=== PATIENT | male | born 1965 | race Caucasian/White ===

== ENCOUNTER → 2023-05-26 12:49 | Outpatient (REF) | payer OTHER, SELFPAY | LOC: RAD 12:49 | PROVIDERS: ATTENDING PHYSICIAN Physician Assistant; FAMILY PHYSICIAN Physician Assistant Medical | DX: M81.0 Age-related osteoporosis without current pathological fracture (principal) | CPT/HCPCS: 77080 ==

== ENCOUNTER 2023-12-17 12:05 | Emergency (ER) | payer OTHER, SELFPAY ==
[2023-12-17] VITALS (10 sets, daily range): BP systolic 85–110; BP diastolic 54–88; BMI 26.6
--- NOTE | 2023-12-17 12:43 | ED.GENMED ---
History of Present Illness
<RASHEED Gonzalez - Last Filed: 12/17/23 14:54>
General
Chief Complaint: Heart Rate Problem
Source: patient
Exam Limitations: none
Time Seen by Provider: 12/17/23 12:35
Nursing documentation reviewed up to this point in time: agreed with
History of Present Illness
History of Present Illness:
Patient is a 4-year-old male with past medical history of DVT on Eliquis, hypertension on lisinopril reflux on Nexium presents to the ER for evaluation. Patient reports he received the flu vaccine and COVID-vaccine December 05 and then on
December 07 in the middle the night he woke up very sweaty and felt feverish. Since then he has felt very fatigued. He went to his family doctor's office today and was found to be tachycardic with a heart rate of 160. His blood pressure was also
low. Patient presents to the ER awake alert he denies any associated shortness of breath chest pain. He is tachycardic and hypertensive. He feels tired but denies any dizziness. He was not aware his blood pressure was low and he has been taking
his lisinopril. Patient does report he has been very thirsty for water some symptoms started.
Past History
<RASHEED Gonzalez - Last Filed: 12/17/23 14:54>
Past History
ED Past Medical History: Psychiatric, Other (renal calculi), Other (severe epistaxis in past) and Other (DVT, has IVC filter)
ED Past Surgical History: None
Social History
Tobacco: Non-smoker
Alcohol: None
Drug: None
Personal:
Living: with family
Employment: Employed
Family History
Family History: Diabetes
Review of Systems
<RASHEED Gonzalez - Last Filed: 12/17/23 14:54>
Review of Systems
Allergies reviewed?: Yes
All Other Systems: ROS reviewed and negative except as documented in HPI and ROS
Constitutional: Reports other (+ feverish /sweaty on 12/07 )
EENT: Reports no symptoms
Respiratory: Reports no symptoms; Denies trouble breathing
ABD/GI: Reports no symptoms; Denies abdominal pain, nausea, vomiting or black stools
: Reports no symptoms
Musculoskeletal: Reports no symptoms
Skin: Reports no symptoms
Neurological: Reports no symptoms
Psychiatric: Reports no symptoms
Phy Exam
<RASHEED Gonzalez - Last Filed: 12/17/23 14:54>
General Physical Exam
General Presentation: no apparent distress
General age: appears stated age
General Skin: warm and dry
General Habitus: normal
General Mental: alert
General Hydration: appears well hydrated
Cardiovascular Exam
Cardiovascular Exam: no murmur, normal peripheral pulses and tachycardia
Pulmonary Exam
Pulmonary Exam: lungs clear and no respiratory distress
Neurological Exam
Neurological Exam: alert and oriented x3
Musculoskeletal Exam
Musculoskeletal Exam: full ROM
Skin Exam
Skin Exam: normal color and warm/dry
Psychiatric Exam
Psychiatric Exam: normal mood/affect
Course
<RASHEED Gonzalez - Last Filed: 12/17/23 14:54>
Orders/Labs/Results
Orders:
Orders
12/17/23 12:15
ECG [Electrocardiogram (*1)] Urgent
Reason for Study: Tachycardia
12/17/23 12:16
EKG- Treatment ONCE
12/17/23 12:35
CBC/With Diff [Complete Blood Count/With Diff] Urgent
CMP [Comprehensive Metabolic Panel] Urgent
TSH Reflex To Free T4 Urgent
Comment: ADD ON
Troponin I Urgent
12/17/23 13:17
Potassium Chloride 10% Elixir [KCl Elixir] 40 meq PO NOW STA
12/17/23 13:28
Add On- LAB Urgent
Tests Added?: TSH reflex Free T4
Abnormal Lab Results
12/17/23 12/17/23
12:35 12:50
WBC 11.6 H 10^3/uL
(4.8-10.8)
RBC 4.55 L 10^6/uL
(4.70-6.10)
MCV 94.7 H fL
(80.0-94.0)
MCH 34.7 H pg
(27.0-31.0)
Abs Immat Gran (auto) 0.1 H 10^3/uL
(0-0.05)
Absolute Neuts (auto) 8.2 H 10^3/uL
(1.4-6.5)
Absolute Monos (auto) 1.9 H 10^3/uL
(0.1-0.6)
Immature Gran % 0.8 H %
(0-0.5)
Lymphocytes % 10.9 L %
(20.5-51.1)
Monocytes % 16.2 H %
(1.7-9.3)
Potassium 3.1 L mmol/L
(3.5-5.1)
Creatinine 1.6 H mg/dL
(0.7-1.3)
Glucose 115 H mg/dl
(70-99)
Total Protein 6.1 L g/dl
(6.3-8.2)
POC Glucose 124 H mg/dl
(70-99)
12/17/23 12:35
12/17/23 12:35
Vital Signs
Initial and Last Documented VS:
Initial Vital Signs
Temp Pulse Resp BP Pulse Ox
98.4 F 124 18 103/87 98
12/17/23 12:09 12/17/23 12:09 12/17/23 12:09 12/17/23 12:09 12/17/23 12:09
Last Documented Vital Signs
Temp Pulse Resp BP Pulse Ox
98.4 F 100 15 110/88 98
12/17/23 12:09 12/17/23 14:00 12/17/23 14:00 12/17/23 14:00 12/17/23 14:00
Services Program Manager consulted with Physician
Services Program Manager consulted with physician?: Yes
Name of Physician Consulted: Tomer
<Tank Jeff, DO - Last Filed: 12/17/23 13:36>
Orders/Labs/Results
Orders:
Orders
12/17/23 12:15
ECG [Electrocardiogram (*1)] Urgent
Reason for Study: Tachycardia
12/17/23 12:16
EKG- Treatment ONCE
12/17/23 12:35
CBC/With Diff [Complete Blood Count/With Diff] Urgent
CMP [Comprehensive Metabolic Panel] Urgent
TSH Reflex To Free T4 Urgent
Comment: ADD ON
Troponin I Urgent
12/17/23 13:17
Potassium Chloride 10% Elixir [KCl Elixir] 40 meq PO NOW STA
12/17/23 13:28
Add On- LAB Urgent
Tests Added?: TSH reflex Free T4
Abnormal Lab Results
12/17/23 12/17/23
12:35 12:50
WBC 11.6 H 10^3/uL
(4.8-10.8)
RBC 4.55 L 10^6/uL
(4.70-6.10)
MCV 94.7 H fL
(80.0-94.0)
MCH 34.7 H pg
(27.0-31.0)
Abs Immat Gran (auto) 0.1 H 10^3/uL
(0-0.05)
Absolute Neuts (auto) 8.2 H 10^3/uL
(1.4-6.5)
Absolute Monos (auto) 1.9 H 10^3/uL
(0.1-0.6)
Immature Gran % 0.8 H %
(0-0.5)
Lymphocytes % 10.9 L %
(20.5-51.1)
Monocytes % 16.2 H %
(1.7-9.3)
Potassium 3.1 L mmol/L
(3.5-5.1)
Creatinine 1.6 H mg/dL
(0.7-1.3)
Glucose 115 H mg/dl
(70-99)
Total Protein 6.1 L g/dl
(6.3-8.2)
POC Glucose 124 H mg/dl
(70-99)
12/17/23 12:35
12/17/23 12:35
Vital Signs
Initial and Last Documented VS:
Initial Vital Signs
Temp Pulse Resp BP Pulse Ox
98.4 F 124 18 103/87 98
12/17/23 12:09 12/17/23 12:09 12/17/23 12:09 12/17/23 12:09 12/17/23 12:09
Last Documented Vital Signs
Temp Pulse Resp BP Pulse Ox
98.4 F 100 15 110/88 98
12/17/23 12:09 12/17/23 14:00 12/17/23 14:00 12/17/23 14:00 12/17/23 14:00
<RASHEED Gonzalez - Last Filed: 12/17/23 14:54>
MDM/Problems Addressed
MDM/Problems Addressed:
Patient is document is a 4-year-old male who presented to his primary care office with an elevated heart rate in the 160s. After receiving COVID and flu vaccine on the he started to not feel well feeling fatigued. He did have intermittent
fevers over the past 2 days after receiving vaccinations. Patient has been fatigued and found to have elevated heart rate at PCP and sent here. He did present with an elevated heart rate here and low blood pressure. He however denies any recent
fevers and is afebrile here with a white count of 11.6. Patient was given fluids which did improve pressure. He arrived nontoxic and remained nontoxic-appearing.
Patient's potassium was slightly with 3.1 he was given a dose of KCl here. Normal sodium. His creatinine was elevated 1.6 and his troponin was negative no complaints of chest pain thyroid pending.
Pt was evaluated by ED attending.
Patient is well-appearing feeling better patient evaluated by ED physician with plans for outpatient cardiology follow-up with a Holter monitor.
<RASHEED Gonzalez - Last Filed: 12/17/23 14:54>
*Pulse Oximetry
Patient hypoxic: no
*EKG
Interpreted by ED Provider?: Yes
Interpretation: abnormal
Heart Rate: 117
*Critical Care Note
Total Time (30-74mins, 75-104mins- exclusive of procedures): Not Applicable
ED Attending Note
<RASHEED Gonzalez - Last Filed: 12/17/23 14:54>
-
Portions of this chart may have been created with voice recognition software.� Occasional wrong word or��sound alike� substitutions may have occurred due to the inherent limitations of voice recognition software.
<Tank Jeff DO - Last Filed: 12/17/23 13:36>
ED Attending Note
Patient seen and examined by attending physician: Yes
I performed the substantive portion of visit, reviewed & personally made and approve the management plan that is documented in note by myself or KM.: Yes
ED Attending Note:
I have seen and evaluated the patient with a [id number] encounter. I have spoken to the advance practicer provider and involved in the medical history, the physical exam, medical decision making.
Evaluation and management service: agree unless noted differently below.
Results interpretation: agree unless noted differently below.
Focused HPI: 58-year-old male presenting for evaluation of tachycardia and feeling unwell. He initially thought this could be an adverse reaction to recent vaccines. On arrival, patient found to be tachycardic and hypotensive
Physical exam: On my evaluation, patient has already received IV fluids. He is now in a normal sinus rhythm and denies any complaint. Heart regular rhythm. Lungs clear. No leg edema
Medical Decision Making: This could potentially be related to dehydration versus adverse side effect of the vaccines. Initial EKG concerning for sinus tachycardia. Denies chest pain or shortness of breath. All symptoms resolved. Will replete
potassium thyroid functions. We discussed outpatient follow-up with PCP to discuss Holter monitor to ensure no underlying A-fib or a flutter
Discharge Plan
Departure
Patient Disposition: Home (Routine Discharge)
Date of Disposition: 12/17/23
Time of Disposition: 14:53
Patient with high blood pressure during this ER visit?: No
Condition: Fair
Covid-19: Not Applicable
Discharge Problem:
Tachycardia
Instructions: Sinus Tachycardia (DC)
Prescriptions:
No Action
lamotrigine [Lamictal] 200 MG tablet
200 mg PO DAILY
Patient Comments:
Patient states 'my doctors office has them'
Eliquis DVT-PE Treat 30D Start 5 MG tablets,dose pack
5 - 10 mg PO DIRECTED Qty: 1 0RF
esomeprazole magnesium [Nexium] 40 mg Capsule,Delayed Release(Dr/Ec)
40 mg PO DAILY
lisinopril 40 mg Tablet
40 mg PO DAILY
duloxetine [Cymbalta] 30 mg Capsule,Delayed Release(Dr/Ec)
30 mg PO DAILY
omeprazole-sodium bicarbonate [Zegerid] 40-1.1 mg-gram Capsule
1 cap PO DAILY
quetiapine [Seroquel] 50 mg Tablet
50 mg PO DAILY PRN (Reason: as directed )
sumatriptan succinate 25 mg Tablet
25 mg PO
zoledronic cnrm-kgerqwkn-oytvo [Reclast] 5 mg/100 mL Piggyback
IV
penicillin V potassium 250 mg tablet
250 mg PO QID Qty: 40 0RF
oxycodone-acetaminophen [Percocet] 5-325 mg tablet
1 tab PO Q4HPRN PRN (Reason: pain) Qty: 8 0RF
Referrals:
Scheiring,Halle, DO [Active] -
UNKNOWN - PT DOES,NOT KNOW [Family Provider] -
Activity Restrictions/Additional Instructions:
As discussed stay well-hydrated. Please call cardiology tomorrow for an appointment as soon as possible. Return if any worsening of symptoms if palpitations shortness of breath ,chest pain,increased fatigue or any further concerns.
Your potassium was mildly low and you were given a dose here in the ER please have this rechecked by your family doctor. Your thyroid level is normal.
In addition your creatinine(kidney function) was mildly elevated please have this also rechecked by your family doctor in the next several days
Avoid caffeine , chocolate alcohol.
Interventions
Interventions:
*Risk Screen - Suicide Last Done: 12/17/23 12:19
*General Assessment Last Done: 12/17/23 12:19
*Neglect/Abuse Screening Last Done: 12/17/23 12:19
ED- Fall Risk Assessment Last Done: 12/17/23 12:35
*ED COVID-19 Vaccine History Last Done: 12/17/23 12:19
ED- Cardiac Assessment Last Done: 12/17/23 12:38
ED- Pulmonary Assessment Last Done: 12/17/23 12:38
Discharge Date and Time
Print Language: CAMEROONIAN
[2023-12-17 12:47] LABS: % Basophils 0.5 % (0-2); % Immature Granulocytes 0.8 % (0-0.5); % Lymphocytes 10.9 % (20.5-51.1); % Monocytes 16.2 % (1.7-9.3); % Neutrophils 70.6 % (42.2-75.2); Absolute Basophils 0.1 10^3/uL (0-0.2); Absolute Eosinophils 0.1 10^3/uL (0-0.7); Absolute Immature Granulocytes 0.1 10^3/uL (0-0.05); Absolute Lymphocytes 1.3 10^3/uL (1.2-3.4); Absolute Monocytes 1.9 10^3/uL (0.1-0.6); Absolute Neutrophils 8.2 10^3/uL (1.4-6.5); Hematocrit 43.1 % (39.0-52.0); Hemoglobin 15.8 g/dL (13.0-18.0); Mean Corp Hgb Conc. 36.7 g/dL (33.0-37.0); Mean Corpuscular Hgb 34.7 pg (27.0-31.0); Mean Corpuscular Volume 94.7 fL (80.0-94.0); Mean Platelet Volume 9.2 fL (7.4-10.4); Nucleated Red Blood Cells % 0 % (-); Platelet Count 231 10^3/uL (130-400); Red Blood Cell Count 4.55 10^6/uL (4.70-6.10); Red Cell Dist. Width 12.9 % (11.5-14.5); White Blood Cell Count 11.6 10^3/uL (4.8-10.8)
[2023-12-17 12:51] LABS: Glucose - Point of Care 124 mg/dl (70-99)
[2023-12-17 13:06] LABS: ALT (SGPT) 17 U/L (0-50); AST (SGOT) 29 U/L (17-59); Albumin 3.6 g/dl (3.5-5.0); Alkaline Phosphatase 117 U/L (38-126); Blood Urea Nitrogen 15 mg/dl (9-20); Calcium 8.9 mg/dl (8.4-10.2); Carbon Dioxide 25 mmol/L (22-30); Chloride 99 mmol/L (98-107); Estimated Creatinine Clearance 51 ml/min; Glucose 115 mg/dl (70-99); Potassium 3.1 mmol/L (3.5-5.1); Sodium 137 mmol/L (135-145); Total Bilirubin 0.7 mg/dl (0.2-1.3); Total Protein 6.1 g/dl (6.3-8.2); eGFR 49.02
[2023-12-17 13:16] LABS: Troponin I < 0.012 ng/ml
[2023-12-17] MEDS: KCL ELIXIR 40 MEQ PO (13:59)
[2023-12-17 14:49] LABS: TSH Reflex To Free T4 2.01 uIU/ml (0.47-4.68)
== END 2023-12-17 15:56 | disposition home or self-care (01) ==
LOC: EMR 12:05
PROVIDERS: Emergency Medicine; EMERGENCY PHYSICIAN Student in an Organized Health Care Education/Training Program
DX: R00.0 Tachycardia, unspecified (principal); R50.9 Fever, unspecified; R53.83 Other fatigue; I10 Essential (primary) hypertension; Z79.01 Long term (current) use of anticoagulants; Z79.899 Other long term (current) drug therapy; Z86.718 Personal history of other venous thrombosis and embolism; Z87.442 Personal history of urinary calculi
CPT/HCPCS: 99283; 80053; 82962; 84443; 84484; 85025; 93005

== ENCOUNTER → 2024-01-09 12:47 | Outpatient (REF) | payer OTHER, SELFPAY | LOC: HWRCS 12:47 | PROVIDERS: ATTENDING PHYSICIAN Internal Medicine Cardiovascular Disease; FAMILY PHYSICIAN Physician Assistant Medical | DX: I48.0 Paroxysmal atrial fibrillation (principal) | CPT/HCPCS: 93306 ==

== ENCOUNTER 2024-05-05 15:17 | Emergency (ER) | payer OTHER, SELFPAY ==
[2024-05-05] VITALS (9 sets, daily range): BP systolic 108–161; BP diastolic 76–121
[2024-05-05 16:07] LABS: % Basophils 0.3 % (0-2); % Eosinophils 0.3 % (0-6); % Immature Granulocytes 0.9 % (0-0.5); % Lymphocytes 10.3 % (20.5-51.1); % Neutrophils 75.2 % (42.2-75.2); Absolute Immature Granulocytes 0.1 10^3/uL (0-0.05); Absolute Lymphocytes 1.1 10^3/uL (1.2-3.4); Absolute Monocytes 1.3 10^3/uL (0.1-0.6); Absolute Neutrophils 7.8 10^3/uL (1.4-6.5); Hematocrit 42.1 % (39.0-52.0); Hemoglobin 15.1 g/dL (13.0-18.0); Mean Corp Hgb Conc. 35.9 g/dL (33.0-37.0); Mean Corpuscular Hgb 34.5 pg (27.0-31.0); Mean Corpuscular Volume 96.1 fL (80.0-94.0); Mean Platelet Volume 9.3 fL (7.4-10.4); Nucleated Red Blood Cells % 0 % (-); Platelet Count 267 10^3/uL (130-400); Red Blood Cell Count 4.38 10^6/uL (4.70-6.10); Red Cell Dist. Width 12.9 % (11.5-14.5); White Blood Cell Count 10.3 10^3/uL (4.8-10.8)
[2024-05-05 16:18] LABS: ALT (SGPT) 18 U/L (0-50); AST (SGOT) 24 U/L (17-59); Albumin 3.9 g/dl (3.5-5.0); Alkaline Phosphatase 142 U/L (38-126); Blood Urea Nitrogen 15 mg/dl (9-20); Calcium 8.4 mg/dl (8.4-10.2); Carbon Dioxide 22 mmol/L (22-30); Chloride 96 mmol/L (98-107); Glucose 116 mg/dl (70-99); Potassium 3.7 mmol/L (3.5-5.1); Sodium 128 mmol/L (135-145); Total Bilirubin 1.6 mg/dl (0.2-1.3); Total Protein 6.7 g/dl (6.3-8.2); eGFR > 60.00
[2024-05-05 16:48] LABS: TSH Reflex To Free T4 2.05 uIU/ml (0.47-4.68)
--- NOTE | 2024-05-05 18:21 | ED.GENMED ---
History of Present Illness
General
Chief Complaint: Heart Rate Problem
Source: patient
Exam Limitations: none
Time Seen by Provider: 05/05/24 18:12
Nursing documentation reviewed up to this point in time: agreed with
History of Present Illness
History of Present Illness:
59 yr old male presents to the ED for evaluation of elevated heart rate.
PT was sent by pcp.
Patient went for routine physical and was found to have an elevated heart rate. He reports this has occurred in the past in fact he was here in December 2023 for tachycardia. He did see Dr. Asael Guan and had a full evaluation; he reports
he was not recommended to have a Holter monitor.
Patient reports on Friday he started to feel tired had a mild postnasal drip however denies any other recent illness. His family doctor tested him for COVID and flu both of which were negative today. He does admit however that he did have an
energy drink this morning and did take Robitussin last night. He normally drinks a Pepsi a day and drinks energy drinks occasionally.
He was not aware that his heart rate was high he had no palpitations chest pain or shortness of breath.
He does have a history of DVT and is on Eliquis.
Pt is on lisinopril however no other rate control drug.
Patient has a history of alcohol abuse quit in 2021
Past History
Past History
ED Past Medical History: Psychiatric, Other (renal calculi), Other (severe epistaxis in past) and Other (DVT, has IVC filter)
ED Past Surgical History: None
Social History
Tobacco: Non-smoker
Alcohol: None
Drug: None
Personal:
Living: with family
Employment: Employed
Family History
Family History: Diabetes
Review of Systems
Review of Systems
Allergies reviewed?: Yes
All Other Systems: ROS reviewed and negative except as documented in HPI and ROS
Constitutional: Reports no symptoms; Denies fever, fatigue or chills
EENT: Reports no symptoms
Respiratory: Reports no symptoms
Cardiac: Reports no symptoms; Denies chest pain, palpitations or syncope
ABD/GI: Reports no symptoms
: Reports no symptoms
Musculoskeletal: Reports no symptoms
Skin: Reports no symptoms
Neurological: Reports no symptoms
Psychiatric: Reports no symptoms
Phy Exam
General Physical Exam
General Presentation: no apparent distress
General age: appears stated age
General Skin: warm and dry
General Habitus: normal
General Mental: alert
General Hydration: appears well hydrated
Cardiovascular Exam
Cardiovascular Exam: tachycardia
Pulmonary Exam
Pulmonary Exam: lungs clear and no respiratory distress
Neurological Exam
Neurological Exam: alert and oriented x3
Musculoskeletal Exam
Musculoskeletal Exam: full ROM
Skin Exam
Skin Exam: normal color and warm/dry
Psychiatric Exam
Psychiatric Exam: normal mood/affect
Course
Orders/Labs/Results
Orders:
Orders
05/05/24 15:18
Electrocardiogram (*1) Urgent
Reason for Study: Tachycardia
EKG- Treatment ONCE
05/05/24 15:55
Complete Blood Count/With Diff Urgent
Comprehensive Metabolic Panel Urgent
TSH Reflex To Free T4 Urgent
05/05/24 20:06
0.9% Sodium Chloride 1000 ml [Nss] 1,000 ml IV BOLUS
05/05/24 21:28
BMP [Basic Metabolic Panel] Urgent
05/05/24 21:59
Metoprolol [Lopressor] 5 mg IV NOW STA
Potassium Chloride 10% Elixir [KCl Elixir] 40 meq PO NOW STA
Abnormal Lab Results
05/05/24 05/05/24
15:55 21:28
RBC 4.38 L 10^6/uL
(4.70-6.10)
MCV 96.1 H fL
(80.0-94.0)
MCH 34.5 H pg
(27.0-31.0)
Abs Immat Gran (auto) 0.1 H 10^3/uL
(0-0.05)
Absolute Neuts (auto) 7.8 H 10^3/uL
(1.4-6.5)
Absolute Lymphs (auto) 1.1 L 10^3/uL
(1.2-3.4)
Absolute Monos (auto) 1.3 H 10^3/uL
(0.1-0.6)
Immature Gran % 0.9 H %
(0-0.5)
Lymphocytes % 10.3 L %
(20.5-51.1)
Monocytes % 13.0 H %
(1.7-9.3)
Sodium 128 L mmol/L 130 L mmol/L
(135-145) (135-145)
Potassium 2.9 L mmol/L
(3.5-5.1)
Chloride 96 L mmol/L
(98-107)
Glucose 116 H mg/dl 182 H mg/dl
(70-99) (70-99)
Calcium 7.1 L mg/dl
(8.4-10.2)
Total Bilirubin 1.6 H mg/dl
(0.2-1.3)
Alkaline Phosphatase 142 H U/L
(38-126)
05/05/24 15:55
05/05/24 21:28
Vital Signs
Initial and Last Documented VS:
Initial Vital Signs
Temp Pulse Resp BP Pulse Ox
98.8 F 84 18 147/93 96
05/05/24 15:39 05/05/24 15:39 05/05/24 15:39 05/05/24 15:39 05/05/24 15:39
Last Documented Vital Signs
Temp Pulse Resp BP Pulse Ox
98.7 F 82 22 129/94 96
05/05/24 22:00 05/05/24 23:00 05/05/24 23:00 05/05/24 23:00 05/05/24 23:00
Histology Technologist consulted with Physician
Histology Technologist consulted with physician?: Yes
Name of Physician Consulted: arnel/chloe
MDM/Problems Addressed
MDM/Problems Addressed:
As documented patient is a 59-year-old male that was sent to the ER for tachycardia. Patient was being evaluated for regular physical. Patient has had tachycardia in the past and has seen Dr. Guan however did not require a Holter monitor.
He was not aware that he was tachycardic he had no palpitations chest pain or shortness of breath. He does admit to drinking energy drink however incidentally today prior to his appointment. He presents awake alert in no acute distress. It is
documented in his chart that he does have a history of A-fib in the past and had an echo. Patient is sinus tachycardia here.. Echo reviewed from December 2023 pt denies any recent illness /fever/chills. Pt is afebrile, nml HGB ; Sodium is slightly
low at 128 Potassium is 3.7. Patient reports he is post to take potassium at home.
The patient is asymptomatic he has remained tachycardic as high as the 120s here in the ER despite oral fluids. Case reviewed with ED physician .
patient was given a liter of fluids however heart rate still mildly tachycardic.
As discussed with ED physician will give 1 dose of IV Lopressor here patient's potassium likely low from dilution. Will give KCl here in the ER however patient does have potassium to take at home that he is prescribed.
Pt is non toxic appearing and is in has remained asymptomatic throughout the ED stay. Repeat calcium also low but initial calcium was normal will have this rechecked as an outpatient .
will plan for discharge home once heart rate is slightly improved with outpatient follow with cardiology
Heart rate improved. Patient in no acute distress will check blood pressure again as it is elevated however he does have a history of elevated blood pressure is 126/89 pt very non toxic.
Will DC with outpatient follow-up with his ambulatory care .
Will give script for potassium (because he is believes this is just [id number]-[id number]
Chronic conditions affecting care:
htn
*Pulse Oximetry
Patient hypoxic: no
*EKG
Heart Rate: 109
Rate: tachycardiac
Rhythm: sinus
Ischemia: no ischemia
*Critical Care Note
Total Time (30-74mins, 75-104mins- exclusive of procedures): Not Applicable
ED Attending Note
-
Portions of this chart may have been created with voice recognition software.� Occasional wrong word or��sound alike� substitutions may have occurred due to the inherent limitations of voice recognition software.
Discharge Plan
Departure
Patient Disposition: Home (Routine Discharge)
Date of Disposition: 05/05/24
Time of Disposition: 23:00
Patient with high blood pressure during this ER visit?: Yes
Condition: Fair
Covid-19: Not Applicable
Discharge Problem:
Tachycardia
Instructions: Sinus Tachycardia (DC), BLOOD PRESSURE
Prescriptions:
New
potassium chloride 20 mEq packet
20 meq PO DAILY Qty: 7 0RF
No Action
lamotrigine [Lamictal] 200 MG tablet
200 mg PO DAILY
Patient Comments:
Patient states 'my doctors office has them'
Eliquis DVT-PE Treat 30D Start 5 MG tablets,dose pack
5 - 10 mg PO DIRECTED Qty: 1 0RF
esomeprazole magnesium [Nexium] 40 mg Capsule,Delayed Release(Dr/Ec)
40 mg PO DAILY
lisinopril 40 mg Tablet
40 mg PO DAILY
duloxetine [Cymbalta] 30 mg Capsule,Delayed Release(Dr/Ec)
30 mg PO DAILY
omeprazole-sodium bicarbonate [Zegerid] 40-1.1 mg-gram Capsule
1 cap PO DAILY
quetiapine [Seroquel] 50 mg Tablet
50 mg PO DAILY PRN (Reason: as directed )
sumatriptan succinate 25 mg Tablet
25 mg PO
zoledronic zzzj-bhsfpded-mijtg [Reclast] 5 mg/100 mL Piggyback
IV
penicillin V potassium 250 mg tablet
250 mg PO QID Qty: 40 0RF
oxycodone-acetaminophen [Percocet] 5-325 mg tablet
1 tab PO Q4HPRN PRN (Reason: pain) Qty: 8 0RF
Referrals:
NONE,* [Family Provider] -
Asale Guan MD [Active] -
Activity Restrictions/Additional Instructions:
As discussed your heart rate was elevated here in the ER. you were given fluids as well as IV medication. Please call your ambulatory care tomorrow to make an appointment in the next several days and return if any worsening of symptoms. Also as
discussed your potassium was low here.
you were given 1 dose of oral potassium and a prescription will be sent to your pharmacy to take daily for the next 7 days. Please have your potassium level rechecked in the next week. Please have other labs rechecked including your calcium your
initial calcium was low here but your repeat calcium was low along with your sodium. Please have all of these labs rechecked by your family doctor
AVOID ALL caffeine, energy drinks chocolate.
Interventions
Interventions:
*Risk Screen - Suicide Last Done: 05/05/24 15:39
*General Assessment Last Done: 05/05/24 15:39
*Neglect/Abuse Screening Last Done: 05/05/24 18:22
ED- Fall Risk Assessment Last Done: 05/05/24 18:22
*ED COVID-19 Vaccine History Last Done: 05/05/24 15:39
*Nursing Disposition Last Done: 05/05/24 23:05
ED- Cardiac Assessment Last Done: 05/05/24 18:22
ED- Pulmonary Assessment Last Done: 05/05/24 18:22
Discharge Date and Time
Discharge Date/Time: 05/05/24 23:11
Print Language: BANGLADESHI
[2024-05-05] MEDS: NSS 1000 IV (20:00)
[2024-05-05 21:54] LABS: Blood Urea Nitrogen 17 mg/dl (9-20); Calcium 7.1 mg/dl (8.4-10.2); Carbon Dioxide 27 mmol/L (22-30); Chloride 98 mmol/L (98-107); Glucose 182 mg/dl (70-99); Potassium 2.9 mmol/L (3.5-5.1); Sodium 130 mmol/L (135-145); eGFR > 60.00
[2024-05-05] MEDS: KCL ELIXIR 40 MEQ PO (22:13)
[2024-05-05] MEDS: LOPRESSOR 5 MG IV (22:13)
== END 2024-05-05 23:11 | disposition home or self-care (01) ==
LOC: EMR 15:17
PROVIDERS: Nurse Practitioner; EMERGENCY PHYSICIAN Emergency Medicine
DX: R00.0 Tachycardia, unspecified (principal)
CPT/HCPCS: 99283; 96374; 96361; 80048; 80053; 84443; 85025; 93005